=== PATIENT | female | born 1950 | race Two or more races ===

== ENCOUNTER → 2020-11-06 | Outpatient (CLI) | payer MEDICARE ==
[~2020-11-06] MED LIST: ASCO100018 PO; ATOR20TA37 PO; B CO1TAB14 PO; CHOL10003 PO; OMEG1CAP23 PO; POTA10TA31 PO; VALS1TAB30 PO; [UNRECOGNIZED DRUG - OTHER] PO
[2020-11-06 12:28] LABS: BASOPHILS % (AUTO) 1 % (0-1); EOSINOPHILS % (AUTO) 3 % (1-7); LYMPHOCYTES % (AUTO) 25 % (22-44); MEAN CORPUSCULAR HEMOGLOBIN 29.2 pg (27.0-34.8); MEAN CORPUSCULAR HGB CONC 33.6 g/dL (32.4-35.8); MEAN PLATELET VOLUME 7.4 fL (7.4-10.4); MONOCYTES % (AUTO) 6 % (2-9); NEUTROPHILS % (AUTO) 65 % (42-75); PLATELET COUNT 333 x10^3/uL (130-400); RED BLOOD COUNT 4.39 x10^6/uL (3.82-5.3); RED CELL DISTRIBUTION WIDTH 15.1 % (9.6-15.2)
[2020-11-06 12:34] LABS: ALANINE AMINOTRANSFERASE 35 U/L (12-78); ALBUMIN 3.6 g/dL (3.4-5.0); ANION GAP 5 mmol/L (5-15); CALCIUM 9.7 mg/dL (8.5-10.1); CHLORIDE 106 mmol/L (98-107); CREATININE 0.82 mg/dL (0.55-1.02); MD NO
[2020-11-06 12:36] LABS: ALKALINE PHOSPHATASE 92 U/L (45-117); BILIRUBIN,TOTAL 0.5 mg/dL (0.2-1.0); TOTAL PROTEIN 7.5 g/dL (6.4-8.2)
== END | disposition home or self-care (01) ==
LOC: STAR 10:53
PROVIDERS: ATTEND Orthopaedic Surgery
DX: Z01.810 Encounter for preprocedural cardiovascular examination (principal); M25.561 Pain in right knee; M17.11 Unilateral primary osteoarthritis, right knee; R00.1 Bradycardia, unspecified; R94.31 Abnormal electrocardiogram [ECG] [EKG]; Z20.822 Contact with and (suspected) exposure to COVID-19
CPT/HCPCS: 80053; 85025; 87081; 87635; 93005

== ENCOUNTER 2020-11-12 07:25 | Day surgery (SDC) | payer MEDICARE ==
[~2020-11-12] VITALS: Ht 162.6 cm; Wt 106.1 kg
[~2020-11-12 07:25] MED LIST changes: +DEXAMETHASONE 4 MG/ML, 1ML IVPush ONE; +EPINEPHRINE 1 MG/ML, 1ML ONE; +KETOROLAC 60 MG/2 ML ONE; +ROPIvacaine/PF 0.2%, 20 ML ONE; +SODIUM CHLORIDE 0.9% 50 ML ONE; +TRANEXAMIC ACID 100 MG/ML, 10ML ONE
[2020-11-12] MEDS ORDERED: CHLORHEXIDINE 15 ML UDC ONE (07:58)
[2020-11-12] MEDS ORDERED: LACTATED RINGERS 1,000 ML IV SCH (08:00)
[2020-11-12] MEDS ORDERED: CHLORHEXIDINE 15 ML UDC MM ONE (08:00)
[2020-11-12] MEDS ORDERED: KETOROLAC 60 MG/2 ML ONE (08:03)
[2020-11-12] MEDS ORDERED: MIDAZOLAM 1 MG/ML, 2ML ONE (08:54)
[2020-11-12] MEDS ORDERED: FENTANYL PF 250 MCG/5ML ONE (08:54)
[2020-11-12] MEDS ORDERED: DEXAMETHASONE 4 MG/ML, 5ML ONE (09:43)
[2020-11-12] MEDS ORDERED: DIAZEPAM 5 MG/ML, 2ML IVPush PRN (10:30)
[2020-11-12] MEDS ORDERED: FENTANYL PF 100 MCG/2ML IV PRN (10:30)
[2020-11-12] MEDS ORDERED: LABETALOL 5MG/ML, 20ML IV PRN (10:30)
[2020-11-12] MEDS ORDERED: PROMETHAZINE 25 MG/ML, 1ML IV PRN (10:30)
[2020-11-12] MEDS ORDERED: OXYcodone 5 MG/5 ML ORAL.SOL UDC PO PRN (10:30)
[2020-11-12] MEDS ORDERED: ACETAMINOPHEN 325 MG TABLET PO PRN (10:30)
[2020-11-12] MEDS ORDERED: ALBUTEROL SULFATE 2.5 MG/3 ML NPPB PRN (10:30)
[2020-11-12] MEDS ORDERED: hydrALAzine 20 MG/ML, 1ML IV PRN (10:30)
[2020-11-12] MEDS ORDERED: HYDROmorphone 2 MG/ML, 1ML IVPush PRN (10:30)
[2020-11-12] MEDS ORDERED: MEPERIDINE/PF 25MG/0.5ML IVPush PRN (10:30)
[2020-11-12] MEDS ORDERED: FENTANYL PF 100 MCG/2ML ONE ×2 (10:58→11:22)
[2020-11-12] MEDS ORDERED: HYDROmorphone 1 MG/ML, 1ML INJ ONE (11:22)
[2020-11-12] MEDS ORDERED: OXYcodone 5 MG/5 ML ORAL.SOL UDC ONE (11:23)
[2020-11-12] MEDS ORDERED: NEOSTIGMINE 1 MG/ML, 10ML ONE (11:26)
[2020-11-12] MEDS ORDERED: SUCCINYLCHOLINE 20 MG/ML, 10ML ONE (11:26)
[2020-11-12] MEDS ORDERED: ROCURONIUM 10MG/ML,5ML ONE (11:26)
[2020-11-12] MEDS ORDERED: GLYCOPYRROLATE 0.2MG/1ML, 5ML ONE (11:26)
[2020-11-12] MEDS ORDERED: CEFAZOLIN 1,000 MG ONE (11:26)
[2020-11-12] MEDS ORDERED: PROPOFOL 10 MG/ML, 20ML ONE (11:26)
[2020-11-12] MEDS ORDERED: ONDANSETRON 2MG/ML, 2ML ONE (11:26)
[2020-11-12] MEDS ORDERED: MEPERIDINE/PF 25MG/ML,1ML ONE (11:28)
[2020-11-12] MEDS ORDERED: SODIUM CHLORIDE 0.9% 1,000 ML IV SCH (11:30)
[2020-11-12] MEDS ORDERED: ACETAMINOPHEN 500 MG TABLET PO SCH (11:30)
[2020-11-12] MEDS ORDERED: MAGNESIUM HYDROXIDE 8%, 30ML UDC PO PRN (11:30)
[2020-11-12] MEDS ORDERED: DIAZEPAM 5 MG TABLET PO PRN (11:30)
[2020-11-12] MEDS ORDERED: POLYETHYLENE GLYCOL 17 GM PACKET PO PRN (11:30)
[2020-11-12] MEDS ORDERED: OXYcodone IR 5MG TABLET PO PRN ×2 (11:30)
[2020-11-12] MEDS ORDERED: HYDROmorphone 1 MG/ML, 1ML INJ IVPush PRN (11:30)
[2020-11-12] MEDS ORDERED: DIPHENHYDRAMINE 50 MG/ML, 1ML IVPush PRN (11:30)
[2020-11-12] MEDS ORDERED: ONDANSETRON 2MG/ML, 2ML IVPush PRN (11:30)
[2020-11-12] MEDS ORDERED: ONDANSETRON 4 MG TABLET PO PRN (11:30)
[2020-11-12] MEDS ORDERED: TRANEXAMIC ACID 1,000 MG in SODIUM CHLORIDE 0.9% 100 ML IVPB ONE (11:30)
[2020-11-12] MEDS ORDERED: ALUMINUM/MAG/SIMETHICONE 30 ML UDC PO PRN (11:30)
[2020-11-12] MEDS ORDERED: PROMETHAZINE 12.5 MG SUPP PR PRN (11:30)
[2020-11-12] MEDS ORDERED: BISACODYL 10 MG SUPP PR PRN (11:30)
[2020-11-12] MEDS ORDERED: PROMETHAZINE 25 MG/ML, 1ML IM PRN (11:30)
[2020-11-12] MEDS ORDERED: DIPHENHYDRAMINE 50 MG CAPSULE PO PRN (11:30)
[2020-11-12] MEDS ORDERED: SENNA/DOCUSATE TABLET PO PRN (11:30)
[2020-11-12] MEDS ORDERED: PSYLLIUM PACKET PO PRN (11:30)
[2020-11-12] MEDS ORDERED: hydrALAzine 20 MG/ML, 1ML ONE (11:36)
[2020-11-12] MEDS: KETOROLAC 30 MG/1 ML IV PRN ×2 (15:53→15:54)
[2020-11-12] MEDS ORDERED: TAMSULOSIN 0.4 MG CAP.ER.24H PO ONE (16:00)
[2020-11-12] MEDS ORDERED: KETOROLAC 30 MG/1 ML IV SCH (16:30)
[2020-11-12] MEDS ORDERED: CEFAZOLIN PMX 1GM/50ML 50 ML IVPB SCH (19:00)
[2020-11-12] MEDS ORDERED: DOCUSATE 100 MG CAPSULE PO SCH (21:00)
[2020-11-12] MEDS ORDERED: ASPIRIN 81 MG TABLET EC PO SCH (21:00)
== END 2020-11-12 16:10 | disposition home or self-care (01) ==
LOC: OUT 07:25 → UNDOADMOB 11-13 09:53 → ORIP 11-13 09:53
PROVIDERS: ATTEND Orthopaedic Surgery
DX: M17.11 Unilateral primary osteoarthritis, right knee (principal); M25.561 Pain in right knee; M25.761 Osteophyte, right knee; I10 Essential (primary) hypertension; J45.909 Unspecified asthma, uncomplicated; G47.33 Obstructive sleep apnea (adult) (pediatric); E66.9 Obesity, unspecified; Z68.41 Body mass index [BMI] 40.0-44.9, adult; Z88.1 Allergy status to other antibiotic agents; Z88.8 Allergy status to other drugs, medicaments and biological substances; Z79.899 Other long term (current) drug therapy; Z90.710 Acquired absence of both cervix and uterus; Z98.890 Other specified postprocedural states; Z87.891 Personal history of nicotine dependence; Z82.49 Family history of ischemic heart disease and other diseases of the circulatory system; Z83.3 Family history of diabetes mellitus
CPT/HCPCS: 27447; 64447; 73560; 97162; C1713; C1776; J0171; J0330; J0360; J0690; J1100; J1885; J2175; J2250; J2405; J2704; J2710; J2795; J3010; J7120